=== PATIENT | female | born 1950 | race Two or more races ===

== ENCOUNTER 2024-11-10 04:08 | Day surgery (SDC) | payer OTHER ==
[2024-11-08 14:31] VITALS: BMI 28.3
[2024-11-10] MEDS ORDERED: BUPIVACAINE HCL/PF 0.5% (5MG/ML) 10 ML VIAL ONE (10:28)
[2024-11-10] MEDS ORDERED: ONDANSETRON 4 MG/2 ML VIAL IVPUSH PRN (11:09)
[2024-11-10] MEDS ORDERED: oxyCODONE HCL 5 MG TABLET PO PRN (11:09)
[2024-11-10] MEDS ORDERED: MIDAZOLAM HCL 2 MG/2 ML SINGLE DOSE VIAL ONE (11:10)
[2024-11-10] MEDS ORDERED: LACTATED RINGERS SOLUTION 1,000 ML IV SCH (11:15)
[2024-11-10] MEDS ORDERED: ONDANSETRON 4 MG/2 ML VIAL ONE (11:39)
[2024-11-10] MEDS ORDERED: PROPOFOL 20 ML ONE (11:39)
[2024-11-10] MEDS ORDERED: ceFAZolin SODIUM 1 GM VIAL ONE (11:39)
[2024-11-10] MEDS ORDERED: DEXAMETHASONE SOD PHOSPHATE 4 MG/1 ML VIAL ONE (11:39)
[2024-11-10] MEDS ORDERED: LIDOCAINE HCL/PF 2% SDV 5ML VIAL ONE (11:39)
[2024-11-10] MEDS ORDERED: SUGAMMADEX SODIUM 200 MG/2 ML VIAL ONE (11:39)
[2024-11-10] MEDS ORDERED: ROCURONIUM BROMIDE 50 MG/5 ML SYRINGE ONE (11:39)
[2024-11-10] MEDS: ceFAZolin SODIUM 1 GM VIAL IVPB ONE (11:56)
[2024-11-10] MEDS: BUPIVACAINE HCL/PF 0.5% (5MG/ML) 10 ML VIAL IJ ONE (12:00)
[2024-11-10] MEDS ORDERED: SEVOFLURANE 250 ML BTL ONE (12:28)
[2024-11-10] MEDS ORDERED: ACETAMINOPHEN INJECTION 100 ML ONE (13:14)
[2024-11-10] MEDS: ACETAMINOPHEN 1000 MG/100 ML BAG IVPB ONE (13:15)
[2024-11-10 15:23] VITALS: RESP 16; TEMP 98
[2024-11-10 16:41] VITALS: BP 160/70; PULSE 90
== END 2024-11-10 17:00 | disposition home or self-care (01) ==
LOC: JASU-SURG 04:08
PROVIDERS: ATTEND Surgery
PROC: 0WWG43Z Revision of Infusion Device in Peritoneal Cavity, Percutaneous Endoscopic Approach (ICD-10-PCS; principal; 2024-11-10 11:30)
DX: T85.611A Breakdown (mechanical) of intraperitoneal dialysis catheter, initial encounter (principal); I13.11 Hypertensive heart and chronic kidney disease without heart failure, with stage 5 chronic kidney disease, or end stage renal disease; E11.22 Type 2 diabetes mellitus with diabetic chronic kidney disease; N18.5 Chronic kidney disease, stage 5; N17.8 Other acute kidney failure; Z99.2 Dependence on renal dialysis; K66.0 Peritoneal adhesions (postprocedural) (postinfection)
CPT/HCPCS: 94760; J0131; J1644